=== PATIENT | male | born 1985 | race African-American/Black ===

== ENCOUNTER 2023-02-05 00:40 | Emergency (ER) | payer OTHER ==
[~2023-02-05] VITALS: Ht 167.6 cm; Wt 99.8 kg
[2023-02-05 00:40] VITALS: TEMP 97
[2023-02-05 00:59] LABS: POTASSIUM 3.2 mmol/L (3.6-5.2)
[2023-02-05 01:10] VITALS: BP 105/54
[2023-02-05 01:49] LABS: PLATELET COUNT 243 K/uL (142-355)
== END 2023-02-05 01:09 | disposition short-term general hospital (02) ==
LOC: ED 00:40
PROVIDERS: Family Medicine
DX: S27.329A Contusion of lung, unspecified, initial encounter (principal); J90 Pleural effusion, not elsewhere classified; F10.129 Alcohol abuse with intoxication, unspecified; F14.90 Cocaine use, unspecified, uncomplicated; W26.0XXA Contact with knife, initial encounter
CPT/HCPCS: 36430; 51702; 80053; 80307; 80320; 81002; 85027; 85610; 86850; 86900; 86901; 86922; 96360; 99285; J7040; P9016